=== PATIENT | female | born 1965 | race Caucasian/White ===

== ENCOUNTER 2017-04-11 05:12 | Inpatient (IN) | payer OTHER ==
[2017-03-03 09:20] VITALS: Ht 157.5 cm; Wt 161.8 kg
--- NOTE | 2017-03-03 10:08 | PAT Medication Instructions ---
Service Date March 03, 2017. Current Home Medication List Albuterol Hfa (Ventolin Hfa), 2-4 PUFFS INH Q6H Bupropion (Zyban), 150 MG PO BID Buspirone Hcl (Buspar), 10 MG PO QAM Ergocalciferol (Vitamin D 86781 Unit), 1 TAB PO 3XWEEK Escitalopram Oxalate (Lexapro), 30 MG PO HS Fluticasone Propionate (Inhala (Flovent Diskus), 2 PUFFS INH BID PRN for PRN Loratadine (Claritin), 10 MG PO QAM Lorazepam (Lorazepam), 1 MG PO BID PRN for PRN Omeprazole (Prilosec), 20 MG PO BID Tramadol (Ultram), 50 MG PO Q4H PRN for Pain [Budesonise Inh], 2 PUFFS INH BID [Diflucan], 1 TAB PO UD PRN for RN [Vitamin B12], 1 TAB PO QAM [Vitamin K], 1 TAB PO DAILY [Zinc], 1 TAB PO QAM Medication Instructions For Your Scheduled Surgery - Hold the following medications 10 days prior to surgery: [Vitamin B12], 1 TAB PO QAM [Vitamin K], 1 TAB PO DAILY [Zinc], 1 TAB PO QAM - Hold the following medications the morning of surgery: Loratadine (Claritin), 10 MG PO QAM Ergocalciferol (Vitamin D 35263 Unit), 1 TAB PO 3XWEEK - Take the following medications the morning of surgery with a sip of water OTHERWISE NOTHING TO EAT OR DRINK AFTER MIDNIGHT: Albuterol Hfa (Ventolin Hfa), 2-4 PUFFS INH Q6H (use if needed; BRING TO HOSPITAL) Bupropion (Zyban), 150 MG PO BID Omeprazole (Prilosec), 20 MG PO BID Lorazepam (Lorazepam), 1 MG PO BID PRN for PRN Tramadol (Ultram), 50 MG PO Q4H PRN for Pain (may take up to 4 hours prior to surgery if needed) Buspirone Hcl (Buspar), 10 MG PO QAM [Budesonise Inh], 2 PUFFS INH BID [Diflucan], 1 TAB PO UD PRN Fluticasone Propionate (Inhala (Flovent Diskus), 2 PUFFS INH BID PRN for PRN - Take the following medications as scheduled the night before surgery: Albuterol Hfa (Ventolin Hfa), 2-4 PUFFS INH Q6H Bupropion (Zyban), 150 MG PO BID Omeprazole (Prilosec), 20 MG PO BID Lorazepam (Lorazepam), 1 MG PO BID PRN for PRN Tramadol (Ultram), 50 MG PO Q4H PRN for Pain [Budesonise Inh], 2 PUFFS INH BID [Diflucan], 1 TAB PO UD PRN Escitalopram Oxalate (Lexapro), 30 MG PO HS Fluticasone Propionate (Inhala (Flovent Diskus), 2 PUFFS INH BID PRN for PRN If you have any questions please call us at [phone] or [phone] or [phone]
[2017-03-03 10:12] LABS: BASO % 0.3 %; BASO ABS # 0.02 K/uL (0-0.2); COMPLETE YES; EOS % 2.7 %; HEMATOCRIT 38.6 % (37-47); IG% 0.1 %; LYMPH % 20.3 %; LYMPH ABS # 1.43 K/uL (1.2-3.4); MEAN CORPUSCULAR HEMOGLOBIN 28.7 pg (25-34); MEAN CORPUSCULAR HGB CONC 31.9 g/dl (32-36); MEAN PLATELET VOLUME 11.1 fL (7.4-10.4); MONO % 7.5 %; NEUT % 69.1 %; PLATELET COUNT 289 K/uL (130-400); RED BLOOD COUNT 4.29 M/uL (4.2-5.4); WHITE BLOOD COUNT 7.04 K/uL (4.8-10.8)
--- NOTE | 2017-03-03 10:35 | DIAGNOSTIC IMAGING REPORT ---
CHEST PREADMISSION(PA/LAT) CLINICAL HISTORY: Preoperative evaluation. COMPARISON STUDY: Chest radiograph April 01, 2013. FINDINGS: Lung volumes are normal. There is no consolidation. Pulmonary vascularity is normal. Cardiomediastinal silhouette is normal. There is no pneumothorax or pleural effusion. IMPRESSION: No acute cardiopulmonary findings. Electronically signed by: Shashank Durán M.D. 03/03/2017 10:33 AM Dictated Date/Time: 03/03/2017 10:33 AM
[2017-03-03 10:37] LABS: PARTIAL THROMBOPLASTIN RATIO 1.1; PROTHROMBIN TIME (PATIENT) 10.3 SECONDS (9.0-12.0)
[2017-03-03 11:37] LABS: BUN/CREATININE RATIO 21.9 (10-20); CALCIUM 8.9 mg/dl (8.5-10.1); CREATININE 0.67 mg/dl (0.60-1.20)
[2017-03-03 11:38] LABS: C-REACTIVE PROTEIN 0.33 mg/dl (0-0.29)
--- NOTE | 2017-04-06 18:39 | HISTORY & PHYSICAL EXAMINATION ---
DATE OF ADMISSION: 04/11/2017 CHIEF COMPLAINT: Right knee pain. HISTORY OF PRESENT ILLNESS: The patient is a 51-year-old white female who has been a long-term patient of mine over many years who presents for surgical treatment of her right knee. She has got a long history of bilateral knee pain and discomfort that has gradually gotten worse over the past 10 years. She did undergo a left knee replacement about 4 years ago and has done well from this. She has failed conservative treatment of her right knee. We have been injecting her every 3 months for the past several years. She has actually had to resort to using a cane to get around, even a wheelchair intermittently due to her knee pain. She cannot walk any prolonged distance. 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 She would like to proceed with surgical treatment. PAST MEDICAL HISTORY: 1. Obesity with a BMI of 65.2, status post gastric bypass surgery. 2. Benign tachycardia. 3. Asthma. 4. Sleep apnea with CPAP machine. 5. Anxiety. PAST SURGICAL HISTORY: 1. Hysterectomy. 2. Gastric bypass surgery. 3. Left total knee replacement done on 04/12/2013. ALLERGIES: WALNUTS, LIDODERM PATCH. CURRENT MEDICINES: 1. Lexapro 30 mg a day for depression. 2. BuSpar 10 mg a day for anxiety. 3. Omeprazole 20 mg twice a day. 4. Vitamin D three times a week. 5. Vitamin B12. 6. Loratadine once a day for asthma. 7. Vitamin K. 8. Inhaler for asthma. 9. Zinc. 10. Vitamin C. SOCIAL HISTORY: A 51-year-old female. She is . 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 FAMILY HISTORY: Noncontributory. REVIEW OF SYSTEMS: Negative for diabetes. Denies any chest pain. No shortness of breath. No history of DVT or PE. She does have a recent rash which seems to be cleared up. PHYSICAL EXAMINATION: GENERAL: Reveals a pleasant obese, middle-aged female. She looks to be in reasonably good health. HEENT: Benign. NECK: Supple. No lymphadenopathy. LUNGS: Clear to auscultation. HEART: Regular rate and rhythm. ABDOMEN: Soft, nontender, nondistended. EXTREMITIES: Grossly neurovascularly intact except as follows: Examination of the right knee reveals the patient ambulates with a waddling gait. She has got a large soft tissue envelope. Range of motion is 0 to about 115. No instability. She is diffusely tender to palpate. X-RAYS: X-rays of the right knee reviewed. It shows advanced right knee DJD. She has got complete loss of her medial joint space. She has tricompartmental disease. Moderate osteophyte formation. ASSESSMENT: A 51-year-old white female now 4 years out from a left knee replacement, doing well with advanced right knee degenerative joint disease. She is morbidly obese and status post gastric bypass surgery. She has failed conservative treatment and would like to have her right knee replaced. PLAN: We are going to proceed with right knee replacement. The risks and benefits of this procedure were explained to patient including but not limited to DVT, PE, , infection, neurological injury, vascular injury, bleeding problem, pain, limited range of motion, stiffness, failure to relieve her symptoms, incomplete relief of symptoms, need for further surgery in the future, fracture, leg length inequality, nerve palsy, etc. The patient understands and desires to proceed. Informed consent was obtained. I did explain to her with her large size that she is at increased risk for infection and she is aware of that and would like to proceed. We did talk to her about bringing her CPAP machine to the hospital. She is planning to be discharged home using [facility]. She will need deep sedation during her surgery due to her anxiety. We will likely use a stem in the tibia due to her large size and poor bone quality due to her gastric bypass surgery. MTDD
[2017-04-11] VITALS (9 sets, daily range): BP systolic 115–143; BP diastolic 68–81; PULSE 54–73; TEMP 36.3–37.2; O2SAT 95–99
[~2017-04-11] VITALS: Ht 157.5 cm; Wt 161.8 kg
[~2017-04-11 05:12] MED LIST: BUDESONIDE INH; BUPR150T47 PO; CLR10 PO; DIFLUCAN PO; ESCI1TAB10 PO; FLUT1AER5 INH; LORA1TAB13 PO; MENA1CAP PO; PRLSR20 PO; TRAM-10 PO; VITAMIN B12 PO; VITAMIN D3 PO; VNTHFA/IN INH
[2017-04-11] MEDS ORDERED: LACTATED RINGER'S 500 ML IV SCH (06:00)
[2017-04-11] MEDS ORDERED: GABAPENTIN 300 MG CAP PO SCH (06:00)
[2017-04-11] MEDS ORDERED: ACETAMINOPHEN 500 MG TAB PO SCH (06:00)
[2017-04-11] MEDS ORDERED: LACTATED RINGER'S 1000ML IV SCH (06:00)
[2017-04-11] MEDS ORDERED: TRANEXAMIC ACID INJ 1,000 MG in SODIUM CHLORIDE 0.9% 100ML 100 ML IV SCH (06:00)
[2017-04-11] MEDS ORDERED: BUPIVACAINE LIPOSOME 266 MG, BUPIVACAINE/EPINEPHRINE INJ 50 ML, SODIUM CHLORIDE 0.9% PF... INFIL SCH ×3 (06:00)
[2017-04-11] MEDS ORDERED: FAMOTIDINE 20 MG TAB PO SCH (06:00)
[2017-04-11] MEDS ORDERED: CEFAZOLIN 3000 MG/65 ML D5W 65 ML IV SCH (06:00)
[2017-04-11] MEDS ORDERED: METOCLOPRAMIDE HCL 10 MG TAB PO SCH (06:00)
[2017-04-11] MEDS ORDERED: SCOPOLAMINE 1.5 MG TDSY TD SCH (06:00)
[2017-04-11] MEDS ORDERED: PROPOFOL IV EMULSION 10 MG/ML 20 ML VIAL IV ONE ×2 (06:02→08:58)
[2017-04-11] MEDS ORDERED: MIDAZOLAM HCL 1 MG/ML 2ML VIAL ONE ×3 (06:03→08:27)
[2017-04-11] MEDS ORDERED: BUPIVACAINE 0.5 % 5 MG/1 ML PF 10ML VIAL ONE (06:26)
[2017-04-11] MEDS ORDERED: BUPIVACAINE 0.25% 30 ML VIAL ONE (06:26)
--- NOTE | 2017-04-11 06:48 | History & Physical Bridge Note ---
H&P Re-Evaluation Bridge Note: I have examined the patient, reviewed the History & Physical and in the interval since the performance of the History & Physical I have noted the following changes of clinical significance: No changes noted
[2017-04-11] MEDS ORDERED: SODIUM CHLORIDE 0.9% PF 50 ML VIAL ONE (06:55)
[2017-04-11] MEDS ORDERED: BACITRACIN 50000 UNIT VIAL ONE (06:55)
[2017-04-11] MEDS ORDERED: BUPIVACAINE LIPOSOME 1/3% 266 MG/20 ML VIAL INFIL ONE (06:55)
[2017-04-11] MEDS ORDERED: BUPIVACAINE/EPINEPHRINE 0.25% 1:200,000 30 ML VIAL ONE (06:55)
[2017-04-11] MEDS ORDERED: VANCOMYCIN HCL 1000MG/20ML VIAL ONE (07:19)
[2017-04-11] MEDS ORDERED: EpHEDrine SULFATE INJ 50 MG/ML AMP IV PRN (07:30)
[2017-04-11] MEDS ORDERED: HYDROmorphone INJ 2 MG/ML SYR/VIAL IV PRN (07:30)
[2017-04-11] MEDS ORDERED: PHENYLEPHRINE 100MCG/ML 5ML SYR IV PRN (07:30)
[2017-04-11] MEDS ORDERED: ATROPINE SULFATE 0.1 MG/ML 5ML SYR IV PRN (07:30)
[2017-04-11] MEDS ORDERED: ONDANSETRON INJ 2 MG/ML 2 ML VIAL IV PRN ×2 (07:30→09:30)
[2017-04-11] MEDS ORDERED: KETOROLAC TROMETHAMINE 30 MG/ML VIAL IV. PRN (07:30)
[2017-04-11] MEDS ORDERED: EpHEDrine SULFATE 50MG/5ML SYR ONE (07:32)
[2017-04-11] MEDS ORDERED: PHENYLEPHRINE 100MCG/ML 5ML SYR ONE (07:32)
--- NOTE | 2017-04-11 09:22 | [facility] Post Operative Brief Note ---
Immediate Operative Summary Operative Date Apr 11, 2017. Pre-Operative Diagnosis Right knee degenerative joint disease Post-Operative Diagnosis Right knee degenerative joint disease Procedure(s) Performed Right total knee arthroplasty Surgeon Dr. Aristeo Quinonez Predatory Animal Exterminator Surgeon(s) Tom Gonzalez PA-C Estimated Blood Loss 50cc Findings Right Knee DJD Fluids (cc crystalloids) 2000 cc Specimens A. Right knee bone and tissue Drains None Anesthesia Spinal Complication(s) None Disposition Recovery Room / PACU
[2017-04-11] MEDS ORDERED: DIFLUCAN PO PRN (09:30)
[2017-04-11] MEDS ORDERED: [UNRECOGNIZED DRUG - OTHER] INH PRN (09:30)
[2017-04-11] MEDS ORDERED: DiphenhydrAMINE HCL 50 MG/ML VIAL IV PRN (09:30)
[2017-04-11] MEDS ORDERED: BISACODYL 10 MG SUPP PR PRN (09:30)
[2017-04-11] MEDS ORDERED: ALBUTEROL HFA 8 GM INHALER INH PRN (09:30)
[2017-04-11] MEDS ORDERED: ZOLPIDEM TARTRATE 5 MG TAB PO PRN (09:30)
[2017-04-11] MEDS ORDERED: METOCLOPRAMIDE HCL INJ 5 MG/ML 2 ML VIAL IV PRN (09:30)
[2017-04-11] MEDS ORDERED: SILVER SULFADIAZINE 1% CR 50 GM JAR EXT PRN (09:30)
[2017-04-11] MEDS ORDERED: LORAZEPAM 1 MG TAB PO PRN (09:30)
[2017-04-11] MEDS ORDERED: FLUTICASONE PROPIONATE INH PRN (09:30)
[2017-04-11] MEDS ORDERED: MoRPHine SULFATE 2 MG/ML CARP IV PRN (09:30)
[2017-04-11] MEDS ORDERED: MAGNESIUM HYDROXIDE SUSP 30 ML UDC PO PRN (09:30)
[2017-04-11] MEDS ORDERED: ALUMINUM/MAGNESIUM/SIMETH (MAALOX MAX) 30 ML UDC PO PRN (09:30)
--- NOTE | 2017-04-11 09:59 | DIAGNOSTIC IMAGING REPORT ---
RIGHT KNEE 1 OR 2 VIEWS ROUTINE CLINICAL HISTORY: Post-op Right total knee Right joint replacement COMPARISON: None. DISCUSSION: Anatomic alignment status post total right knee replacement. The tibial prosthetic is longstem. Expected soft tissue postoperative change IMPRESSION: Total right knee replacement with the prosthetic in good position Electronically signed by: José Miguel Fritz M.D. 04/11/2017 9:58 AM Dictated Date/Time: 04/11/2017 9:57 AM
--- NOTE | 2017-04-11 10:00 | OPERATIVE REPORT ---
DATE OF OPERATION: 04/11/2017 SURGEON: Dr. Aristeo Quinonez. MOTOR OPERATOR: ANDI Weldon PREOPERATIVE DIAGNOSIS: Right knee degenerative joint disease. POSTOPERATIVE DIAGNOSIS: Same. PROCEDURE PERFORMED: Right cemented posterior stabilized total knee arthroplasty. COMPLICATIONS: None. ESTIMATED BLOOD LOSS: 50 mL. FLUID REPLACEMENT: 2000 mL crystalloid fluid replacement. ANESTHESIA: Spinal with adductor canal block. DRAINS: None. SPECIMENS: Right knee sent for pathology. TOURNIQUET TIME: 78 minutes at 350 mmHg. OPERATIVE INDICATIONS: The patient is a 51-year-old female who has had a long history of bilateral knee pain and discomfort. She is morbidly obese with a BMI of 65. She has actually undergone gastric bypass surgery and lost over 100 pounds. She continues to be bothered by knee pain and discomfort. She has been through extensive conservative treatment. She had her left knee replaced about 4 years ago and has done well from this and elected to proceed with right total knee arthroplasty. We did put a stem in the tibia due to her large size and likely poor quality bone due to her gastric bypass surgery. OPERATIVE FINDINGS: Operative findings revealed advanced right knee DJD. She had grade 4 [id number] disease in all 3 compartments. Moderate size joint effusion. Very large soft tissue envelope. She does have diffuse osteopenia. OPERATIVE IMPLANTS: Operative implants consisted of: 1. Biomet Vanguard size 67.5 right posterior stabilized femoral component. 2. Biomet size 71 tibial tray with a 5-mm offset and an 80 x 14 mm stem and a small cruciate wing. 3. A 10-mm posterior stabilized polyethylene insert. 4. A 31 x 8 all poly patella. OPERATIVE PROCEDURE: The patient was taken to the operating room, identified and placed on the operating table in the supine position. All contact areas were appropriately padded. IV antibiotics were provided by the anesthesia team. A spinal anesthetic and adductor canal block had been provided in the holding area. Damon catheter was placed in sterile fashion. Right thigh tourniquet was then placed. The right lower extremity was then prepped and draped in the usual sterile fashion. The right leg was elevated and exsanguinated with Esmarch and tourniquet was placed at 350 mmHg. An anterior approach to the right knee was then performed through a longitudinal incision centered over the patella. Sharp dissection was carried out through the subcutaneous tissues. A medial parapatellar arthrotomy incision was made. Some subperiosteal dissection was carried out medially. The fat pad was resected from beneath the patellar tendon. The lateral patellofemoral ligament was released. I could not jennifer the patella due to the large soft tissue envelope, but we did subluxate it laterally. The knee was flexed. The osteophytes were taken off the distal femur. The ACL and PCL were then released from the distal femur. The tibia subluxated anteriorly. I had difficulty exposing the proximal tibia due to the large size and limited flexion, so we elected to cut the femur first. The distal femur was entered with a sharp drill bit. Intramedullary canal was suctioned. A right 5-degree valgus cutting guide was placed. The distal femoral cutting block was pinned in place. The distal femoral cut was made to take an additional 3 mm of bone off the distal femur. The femur was then sized to a size 67.5. We did downsize this slightly. The AP cutting block was pinned parallel to the epicondylar axis, which was 4 degrees of external rotation. The anterior cut, anterior chamfer, posterior cut, and posterior chamfer cuts were made. Box cutting guide was placed and adjusted slightly lateral and the box cut was made. The knee was flexed. The remnants of the medial and lateral menisci were excised. The osteophytes were taken off the posterior aspect of the femur. Attention was then drawn back to the tibia. The proximal tibia was then exposed. The tibial eminence was excised. I then entered the intramedullary canal with the initiating reamer and reamed up to a size 12. I elected to use this with a cutting guide. The proximal tibial cut was made to remove about 3 mm of bone from the most deficient aspect of the medial tibial plateau. The tibia was sized to a size 71. I really wanted to maximize the coverage due to poor bone quality. I elected to use a 5-mm offset stem. The drill and stem punch were used to create the defect for the proximal tibia. The tibial trial was assembled and fit appropriately in the proximal tibia. We then trialed the knee and a 10-mm insert fit most appropriately. Attention was then drawn to the patella. The patella was cleaned of all soft tissues. The patella thickness measured 22 mm in thickness and it was cut down to 13. It was sized to a size 31 patella. Lug holes were drilled for a 31 patella. Lateral osteophyte was removed. Patella button was placed. Knee was taken through range of motion and patella tracked nicely with no thumbs test. Attention was then drawn toward placement of permanent components. All trial components were removed. The wound was irrigated with copious amounts of pulsatile lavage solution. The intramedullary canal of the femur was filled with a bone plug to limit blood loss. The wound was once again irrigated. A double batch of Palacos G cement was mixed with an additional gram of vancomycin due to her increased risk of infection due her morbid obesity. A size 67.5 posterior femoral component, size 71 tibial tray with an 80 x 14 mm for a 5-mm offset stem with a small cruciate wing was then impacted in position followed by a 10-mm posterior stabilized polyethylene insert and a 31 x 8 all poly patella. The knee was brought out into full extension until cement hardened. All extraneous cement had been removed. Once the cement hardened, a final cement check was then performed. The pericapsular tissues were injected with 100 mL of a combination of 20 mL of Exparel, 30 mL of normal saline, and 50 mL of 0.25% Marcaine with epinephrine. The patient did receive 1 gram of tranexamic acid. The tourniquet was then let down for final tourniquet time 78 minutes. Hemostasis was assured with use of electrocautery. The wound was once again irrigated. The extensor mechanism was then closed with a combination of #1 PDS suture and #1 Vicryl suture in a [id number] fashion. Extensor mechanism was checked and found to be intact. The subcutaneous tissues were then closed with 2-0 Dexon suture in a buried interrupted fashion. Skin was closed skin deandra. Leg was then cleaned and dried and a sterile dressing with Xeroform, 4 x 4, sterile cast padding and Espinoza bandage were applied. The patient then transferred to the recovery room in stable condition. The patient tolerated the procedure well with no complications. All needle and sponge counts were correct at the end of the operation. I attest to the content of the Intraoperative Record and any orders documented therein. Any exceptions are noted below. SHAHRAMD
--- NOTE | 2017-04-11 10:32 | Anesthesiology Progress Note ---
Anesthesia Post Op Note Date & Time Apr 11, 2017 at 10:32 Vital Signs Pain Intensity: 0 Vital Signs Past 12 Hours Date Time Temp Pulse Resp B/P (MAP) Pulse Ox O2 Delivery O2 Flow Rate FiO2 04/11/17 10:05 36.4 56 16 117/67 100 Nasal Cannula 2 04/11/17 09:55 36.4 51 16 122/79 100 Nasal Cannula 2 04/11/17 09:45 58 16 124/76 100 Nasal Cannula 2 04/11/17 09:35 56 16 117/71 100 Nasal Cannula 2 04/11/17 09:28 36.1 69 16 140/72 99 Nasal Cannula 2 04/11/17 06:03 37.2 73 18 143/68 97 Room Air Notes Mental Status: alert / awake / arousable, participated in evaluation Pt Amnestic to Procedure: Yes Nausea / Vomiting: adequately controlled Pain: adequately controlled Airway Patency, RR, SpO2: stable & adequate BP & HR: stable & adequate Hydration State: stable & adequate Anesthetic Complications: no major complications apparent
[2017-04-11] MEDS: KETOROLAC TROMETHAMINE 30 MG/ML VIAL IV. SCH ×3 (11:42→23:38)
[2017-04-11] MEDS: D5W AND 1/2NSS + 20MEQ KCL 1,000 ML IV SCH ×3 (11:43→23:38)
[2017-04-11] MEDS: OXYCODONE HCL IR 5 MG TAB (IMMEDIATE RELEASE) PO PRN ×2 (12:38→16:43)
[2017-04-11] MEDS: ACETAMINOPHEN 500 MG TAB PO SCH ×2 (14:18→21:57)
[2017-04-11] MEDS: FERROUS GLUCONATE 324 MG TAB PO SCH ×2 (14:20→17:45)
[2017-04-11] MEDS: CHECK SCOPOLAMINE PATCH PLACEMENT SCH ×2 (15:28→23:36)
[2017-04-11] MEDS: CEFAZOLIN IV 2,000 MG in DEXTROSE 5% 50ML 50 ML IV SCH ×2 (15:54→23:38)
[2017-04-11] MEDS ORDERED: TRANEXAMIC ACID INJ 1,000 MG in SODIUM CHLORIDE 0.9% 100ML 100 ML IV ONE (16:00)
[2017-04-11] MEDS ORDERED: NURSING VERBAL MED ORDER ONE (16:15)
--- NOTE | 2017-04-11 18:27 | PROGRESS NOTE ---
DATE: 04/11/2017 SUBJECTIVE: This is a 51-year-old white female, postop from a right knee replacement. Pain is controlled. Denies any chest pain or shortness of breath. Not feeling dizzy or lightheaded. OBJECTIVE: VITAL SIGNS: Temperature is 36.6. Vital signs stable. PHYSICAL EXAMINATION: GENERAL: Reveals a pleasant, middle-aged female. She is sitting up in bed and looks quite comfortable. She is talking with her family. EXTREMITIES: Examination of the right leg reveals the leg to be well aligned. Dressing is clean, dry and intact. She can dorsiflex and plantarflex her foot appropriately. She is neurologically intact. ASSESSMENT: A 51-year-old white female, postop from right knee replacement, doing well. Pain is controlled. She is neurologically intact. PLAN: 1. DVT prophylaxis including thigh-high TEDs, SCDs, and aspirin twice a day. 2. PT/OT. Weight bear as tolerated. Right total knee protocol. 3. Pain control, doing well with current pain regimen. 4. IV antibiotics x24 hours. 5. Disposition: Plan to discharge to home with some home health once adequately recovered.
[2017-04-11] MEDS: SENNA 8.6 MG TAB PO SCH (20:38)
[2017-04-11] MEDS: ASPIRIN 325 MG ECTAB PO SCH (20:38)
[2017-04-11] MEDS: BuPROPion SR 150 MG TABCR PO SCH (20:39)
[2017-04-11] MEDS: TAPENTADOL ER 50 MG TABCR PO SCH (20:42)
[2017-04-11] MEDS: DOCUSATE SODIUM 100 MG CAP PO SCH (20:42)
[2017-04-12] VITALS (7 sets, daily range): BP systolic 120–141; BP diastolic 56–85; PULSE 61–68; TEMP 36.7–36.9; O2SAT 95–97
[2017-04-12] MEDS: D5W AND 1/2NSS + 20MEQ KCL 1,000 ML IV SCH (06:03)
[2017-04-12] MEDS: ACETAMINOPHEN 500 MG TAB PO SCH ×3 (06:03→21:30)
[2017-04-12] MEDS: KETOROLAC TROMETHAMINE 30 MG/ML VIAL IV. SCH ×4 (06:04→23:16)
[2017-04-12 06:17] LABS: HEMATOCRIT 34.2 % (37-47); MEAN CELL VOLUME 89.5 fL (80-100); MEAN CORPUSCULAR HEMOGLOBIN 28.5 pg (25-34); MEAN CORPUSCULAR HGB CONC 31.9 g/dl (32-36); MEAN PLATELET VOLUME 10.9 fL (7.4-10.4); PLATELET COUNT 226 K/uL (130-400); RED BLOOD COUNT 3.82 M/uL (4.2-5.4); WHITE BLOOD COUNT 6.75 K/uL (4.8-10.8)
[2017-04-12 06:50] LABS: BUN/CREATININE RATIO 15.9 (10-20); CALCIUM 7.6 mg/dl (8.5-10.1); CREATININE 0.61 mg/dl (0.60-1.20)
[2017-04-12] MEDS: CHECK SCOPOLAMINE PATCH PLACEMENT SCH ×2 (07:51→15:39)
--- NOTE | 2017-04-12 08:16 | Anesthesiology Progress Note ---
Anesthesia Post Op Note Date & Time Apr 12, 2017 at 08:15 Vital Signs Pain Intensity: 5.0 Vital Signs Past 12 Hours Date Time Temp Pulse Resp B/P (MAP) Pulse Ox O2 Delivery O2 Flow Rate FiO2 04/12/17 08:12 96 Room Air 04/12/17 07:58 36.8 68 18 137/68 (91) 96 Room Air 04/12/17 07:45 Room Air 04/12/17 03:36 36.8 61 18 120/56 (77) 96 Room Air 04/11/17 23:32 Room Air 04/11/17 22:46 36.6 56 16 139/81 (100) 95 Room Air Notes Mental Status: alert / awake / arousable, participated in evaluation Pt Amnestic to Procedure: Yes Nausea / Vomiting: adequately controlled Pain: adequately controlled Airway Patency, RR, SpO2: stable & adequate BP & HR: stable & adequate Hydration State: stable & adequate Neuraxial Anesthesia: was administered, sensory block resolved Anesthetic Complications: no major complications apparent
[2017-04-12] MEDS: CYANOCOBALAMIN 2,500 MCG SUBL TAB PO SCH (08:39)
[2017-04-12] MEDS: CHOLECALCIFEROL 1000 INTER.UNIT TAB PO SCH (08:40)
[2017-04-12] MEDS: TAPENTADOL ER 50 MG TABCR PO SCH ×2 (08:40→20:39)
[2017-04-12] MEDS: ASPIRIN 325 MG ECTAB PO SCH ×2 (08:40→20:39)
[2017-04-12] MEDS: LORATADINE 10 MG TAB PO SCH (08:41)
[2017-04-12] MEDS: ESCITALOPRAM OXALATE 10 MG TAB PO SCH (08:41)
[2017-04-12] MEDS: BuPROPion SR 150 MG TABCR PO SCH ×2 (08:41→20:39)
[2017-04-12] MEDS: FERROUS GLUCONATE 324 MG TAB PO SCH ×3 (08:42→18:23)
[2017-04-12] MEDS: PANTOprazole SOD 40 MG TAB PO SCH ×2 (08:42→20:39)
[2017-04-12] MEDS: MULTIVITAMIN TAB PO SCH (08:43)
[2017-04-12] MEDS: DOCUSATE SODIUM 100 MG CAP PO SCH ×2 (08:43→20:39)
[2017-04-12] MEDS: OXYCODONE HCL IR 5 MG TAB (IMMEDIATE RELEASE) PO PRN ×3 (08:44→17:13)
[2017-04-12] MEDS ORDERED: [UNRECOGNIZED DRUG - OTHER] PO SCH (09:00)
[2017-04-12] MEDS ORDERED: PANTOprazole SOD 40 MG TAB PO SCH (09:00)
[2017-04-12] MEDS ORDERED: RXC5 PO (12:21)
[2017-04-12] MEDS ORDERED: FRRG PO (12:21)
[2017-04-12] MEDS ORDERED: ACET-24 PO (12:21)
[2017-04-12] MEDS ORDERED: ASPEC325 PO (12:21)
--- NOTE | 2017-04-12 12:22 | Discharge Instructions ---
Discharge Instructions Date of Service Apr 12, 2017. Admission Reason for Admission: Right Knee Degenerative Joint Disease Discharge Discharge Diagnosis / Problem: Right Knee Replacement Discharge Goals Goal(s): Decrease discomfort, Improve function, Increase independence, Improve disease control, Therapeutic intervention Activity Recommendations Activity Limitations: per Instructions/Follow-up section Weightbearing Status: Right weightbearing . Instructions / Follow-Up Instructions / Follow-Up ACTIVITY RECOMMENDATIONS: Physical Therapy: * You will go to physical therapy three times each week for four to six weeks after your surgery in order to regain your knee range of motion and to retrain your knee to work properly. * It is just as important to make sure you are getting your knee perfectly straight as it is to regain your knee bend. * Taking a pain pill an hour before therapy can help you have a more productive and comfortable therapy session. Home Exercise: * You were shown a series of exercises (heel props, heel slides, etc.) in the hospital. Do these exercises three to four times each day including the exercises you were shown in physical therapy. Walking: * Get up and walk several times each day. For the first four weeks, try not to stand or walk for more than one hour at a time. If you do stand or walk for more than one hour, you will not hurt anything, but your knee and leg will likely swell. * As you feel comfortable, you may change from the walker or crutches to a cane and then to independent walking. MEDICATIONS: New Medicine: * You will likely be taking one or more of these medications: 1. Oxycodone - A quick and shorter-acting pain medication. Take one to two tablets every four to six hours to lessen your pain. 2. Iron Sulfate - Take three times each day for the month after surgery to help you replace the blood lost during surgery. 3. Aspirin - Thins your blood to lessen the chance of forming a blood clot. * The most common side effects of pain medicine and iron are nausea and constipation. If nausea or constipation is too much of a problem or if you have any questions about your new medicines or doses, call [facility] at . We will try to help you manage these issues. VERY IMPORTANT TO READ AND REVIEW" Pain: * The immediate post-operative period after knee replacement surgery is often quite painful. * You are given a prescription for pain medicine. You should take it, as directed, when you need it, especially before physical therapy and before going to bed. Pain that interferes with sleep is very common and can last several months. * You will likely need pain medicine for the first four to six weeks. It will not stop all of the pain. The pain will lessen and as you feel better, you may change to milder pain medicine such as Tylenol. * The most common side effects of pain medicine are nausea and constipation, so don't take more than you need. SPECIAL CARE INSTRUCTIONS: TEDs/Elastic Stockings: * The white elastic stockings help limit swelling and prevent blood clots from forming in your legs. The more you wear them, the more they work. * Wear them for six weeks after knee replacement surgery and four weeks after partial knee replacement. Prevention of Infection: * Take antibiotics one hour before any dental cleaning, dental work, urological procedure, gastrointestinal procedure or any invasive surgery in order to prevent your new joint from getting infected. * You may get the antibiotics from the doctor performing the procedure or you may call our office at before and we will call in a prescription to the pharmacy of your choice. Things to Watch For: * Drainage from the incision site that occurs more than one week after your surgery. * Severely increased knee/leg pain or swelling. * Increased redness at the incision site. * Fever above 102 degrees Fahrenheit. * Unusual chest pain or shortness of breath. * Unusual pain or burning with urination. Call [facility] at with any of the above problems or if you have any questions about your medicines or recovery. FOLLOW UP VISIT: Make an appointment to see your doctor for approximately two weeks after surgery for a progress check and staple removal by calling the office at . Current Hospital Diet Patient's current hospital diet: Regular Diet Discharge Diet Recommended Diet: Regular Diet Procedures Procedures Performed: Right total knee arthroplasty Pending Studies Studies pending at discharge: no Medical Emergencies . Who to Call and When: Medical Emergencies: If at any time you feel your situation is an emergency, please call [phone] immediately. . Non-Emergent Contact Non-Emergency issues call your: Surgeon . "Provider Documentation" section prepared by Aristeo Quinonez. . VTE Core Measure Inpt VTE Proph given/why not?: Other Anticoagulation, T.E.D. Stockings, SCD's
--- NOTE | 2017-04-12 12:31 | PROGRESS NOTE ---
DATE: 04/12/2017 SUBJECTIVE: A 51-year-old white female postop day 1 from a right knee replacement. the patient is doing pretty well. Therapy went well. Some pain, but manageable. No chest pain or shortness of breath. Not feeling dizzy or lightheaded. OBJECTIVE: VITAL SIGNS: Temperature is 36.8. Vital signs stable. PHYSICAL EXAMINATION: GENERAL: Reveals a pleasant, middle-aged female. She is sitting up in her bed and looks pretty comfortable. LUNGS: Clear to auscultation. HEART: Has a regular rate and rhythm. ABDOMEN: Soft, nontender, nondistended. EXTREMITIES: Grossly neurovascularly intact except as follows. Examination of the right leg reveals the leg to be well-aligned. There is no significant drainage. She can dorsiflex and plantarflex her foot appropriately. She is neurologically intact. Capillary brisk refill. LABORATORY DATA: Hemoglobin 10.9, hematocrit 34.2. Electrolytes are stable. ASSESSMENT: A 51-year-old female postop day 1 from right knee replacement, doing quite well. Pain is controlled. She is neurologically intact. PLAN: 1. DVT prophylaxis including thigh-high TEDs, SCDs, and aspirin twice a day. 2. PT/OT. Weightbearing as tolerated. Right total knee protocol. 3. Pain control. Doing well with current pain regimen. 4. Disposition: Plan to discharge to home with some home health once adequately recovered.
[2017-04-12] MEDS: SENNA 8.6 MG TAB PO SCH (20:39)
[2017-04-13] MEDS: CHECK SCOPOLAMINE PATCH PLACEMENT SCH (00:22)
[2017-04-13] MEDS: KETOROLAC TROMETHAMINE 30 MG/ML VIAL IV. SCH (05:30)
[2017-04-13] MEDS: ACETAMINOPHEN 500 MG TAB PO SCH (05:30)
[2017-04-13 07:43] VITALS: BP 114/68; PULSE 64; TEMP 36.6; O2SAT 97
--- NOTE | 2017-04-13 07:50 | PROGRESS NOTE ---
DATE: 04/13/2017 DATE: 04/13/2017. SUBJECTIVE: A 51-year-old white female postop day 2 from right knee replacement. She is doing pretty well. Pain is controlled. No chest pain or shortness of breath. Not feeling dizzy or lightheaded. OBJECTIVE: VITAL SIGNS: Temperature is 36.7. Vital signs stable. PHYSICAL EXAMINATION: GENERAL: Reveals a healthy, pleasant middle-aged female. She is sitting up in bed, looks pretty comfortable. EXTREMITIES: Examination of the right leg reveals the leg to be well aligned. There is a bit of bloody drainage from the superior aspect of her incision. She can dorsiflex and plantarflex her foot appropriately. She is neurologically intact. ASSESSMENT: A 51-year-old female postop day 2 from a right total knee replacement, doing pretty well. A little bit of bloody drainage which should decrease over the next several days. Pain is controlled. PLAN: 1. DVT prophylaxis including thigh-high TEDs, SCDs, and aspirin twice a day. 2. PT/OT. Weightbearing as tolerated. Right total knee protocol. 3. Pain control. Doing pretty well with current pain regimen. 4. Disposition. Plan to discharge to home with some home health after therapy today.
[2017-04-13 08:29] VITALS: O2SAT 97
[2017-04-13] MEDS ORDERED: VITAMIN K2 100 MCG PO SCH (09:00)
[2017-04-13] MEDS: PANTOprazole SOD 40 MG TAB PO SCH (09:06)
[2017-04-13] MEDS: ESCITALOPRAM OXALATE 10 MG TAB PO SCH (09:07)
[2017-04-13] MEDS: DOCUSATE SODIUM 100 MG CAP PO SCH (09:07)
[2017-04-13] MEDS: MULTIVITAMIN TAB PO SCH (09:07)
[2017-04-13] MEDS: LORATADINE 10 MG TAB PO SCH (09:07)
[2017-04-13] MEDS: CYANOCOBALAMIN 2,500 MCG SUBL TAB PO SCH (09:07)
[2017-04-13] MEDS: ASPIRIN 325 MG ECTAB PO SCH (09:07)
[2017-04-13] MEDS: BuPROPion SR 150 MG TABCR PO SCH (09:07)
[2017-04-13] MEDS: FERROUS GLUCONATE 324 MG TAB PO SCH (09:07)
[2017-04-13] MEDS: CHOLECALCIFEROL 1000 INTER.UNIT TAB PO SCH (09:08)
[2017-04-13] MEDS: OXYCODONE HCL IR 5 MG TAB (IMMEDIATE RELEASE) PO PRN (09:09)
[2017-04-13] MEDS: TAPENTADOL ER 50 MG TABCR PO SCH (09:14)
[2017-04-13 10:49] VITALS: BP 114/68; PULSE 64; TEMP 36.6; O2SAT 97
--- NOTE | 2017-04-20 15:50 | DISCHARGE SUMMARY ---
ADMITTING PHYSICIAN AND SURGEON: Dr. Quinonez. ADMITTING DIAGNOSIS: Right knee degenerative joint disease. SURGERY PERFORMED: Right total knee arthroplasty. SECONDARY DIAGNOSES: Obesity, tachycardia, asthma, sleep apnea, anxiety. CONSULTS: None obtained. HISTORY AND PHYSICAL EXAMINATION: Well documented in patient's chart. HOSPITAL COURSE: The patient was admitted on 04/11/2017 underwent total knee arthroplasty. She tolerated the procedure well. There were no complications. She was transferred to the PACU postoperatively and later to the orthopedic floor for further care. She was given Ancef for antibiotic prophylaxis, JANNETTE stockings, SCDs and aspirin for DVT prophylaxis. Hemoglobin, hematocrit and vital signs were monitored during her hospital stay and remained stable. She developed some postoperative anemia with a hemoglobin down to 10.9 and did not require any blood transfusions. By postoperative day 2, she was tolerating a general diet, pain was controlled with oral pain medicine. She was participating in physical therapy and had no signs or symptoms of deep vein thrombosis. On postop day 2, she was discharged home and set up with home health services, given printed discharge instructions including new prescriptions for extra strength Tylenol, aspirin 325 mg b.i.d., iron supplement and oxycodone. Continue her home medications, continue physical therapy, weightbearing as tolerated, JANNETTE stockings. Follow up in 10-12 days or sooner if there are any problems or concerns.
== END 2017-04-13 11:55 | disposition home health service (06) | DRG 470 ==
LOC: C.ACU 05:12 → C.3E 06:35 → ENRESERV 09:44
PROVIDERS: ADMIT Orthopaedic Surgery Sports Medicine; ATTEND Orthopaedic Surgery Sports Medicine
PROC: 0SRC0J9 Replacement of Right Knee Joint with Synthetic Substitute, Cemented, Open Approach (ICD-10-PCS; principal; 2017-04-11 07:00)
DX: M17.11 Unilateral primary osteoarthritis, right knee (principal); Z68.44 Body mass index [BMI] 60.0-69.9, adult; E66.01 Morbid (severe) obesity due to excess calories; R00.0 Tachycardia, unspecified; J45.909 Unspecified asthma, uncomplicated; G47.33 Obstructive sleep apnea (adult) (pediatric); F41.9 Anxiety disorder, unspecified; F32.9 Major depressive disorder, single episode, unspecified; R00.2 Palpitations; M25.461 Effusion, right knee; M85.80 Other specified disorders of bone density and structure, unspecified site; Z96.652 Presence of left artificial knee joint; Z98.84 Bariatric surgery status; Z99.89 Dependence on other enabling machines and devices; Z79.899 Other long term (current) drug therapy; Z79.891 Long term (current) use of opiate analgesic; Z79.51 Long term (current) use of inhaled steroids